=== PATIENT | male | born 1960 | race Caucasian/White ===

== ENCOUNTER 2016-12-31 14:37 | Emergency (ER) | payer OTHER ==
[~2016-12-31] VITALS: Ht 160 cm; Wt 55.0 kg
[2016-12-31 14:59] VITALS: Ht 160 cm; Wt 55.0 kg
--- NOTE | 2016-12-31 17:29 | ERD ---
ER Documentation Chief Complaint Chief Complaint ap HPI The patient is a 56-year-old male, presenting to the ER because of abdominal pain intermittently for 3 days, more painful at the right flank, he denies similar symptoms previously, no aggravating or relieving factor, denies fever, chills, neck pain, chest pain, dyspnea, vomiting, dysuria, diarrhea. He denies smoking, drinks socially Past medical history: Hypertension, diabetes mellitus, anemia Past surgical history: None ROS All systems reviewed and are negative except as per history of present illness. Medications Home Meds Active Scripts Hydrocodone/Acetaminophen ([place] 5-325 Tablet) 1 Each Tablet, 1 TAB PO Q6H Y for PAIN, #7 TAB Prov:NELA MÁRQUEZ MD 12/31/16 Physical Exam Vitals Vital Signs Date Time Temp Pulse Resp B/P Pulse Ox O2 Delivery O2 Flow Rate FiO2 12/31/16 14:59 99.4 100 18 136/77 99 Physical Exam Const: No acute distress. Head: Atraumatic. Eyes: Normal Conjunctiva. ENT: Normal External Ears, Nose and Mouth. Neck: Full range of motion. No meningismus. Resp: Clear to auscultation bilaterally. Cardio: Regular rate and rhythm. Abd: Soft, non distended, normal bowel sounds, minimal right flank tenderness, no rigidity, rebound, CVA tenderness Skin: No petechiae or rashes. Back: No midline or flank tenderness. Ext: No cyanosis, or edema. Neur: Awake and alert. No focal deficit Psych: Normal Mood and Affect. Result Diagram: 12/31/16 1740 12/31/16 1740 Results 24 hrs Laboratory Tests Test 12/31/16 17:40 12/31/16 17:42 White Blood Count 5.710^3/ul Red Blood Count 3.7910^6/ul Hemoglobin 11.6g/dl Hematocrit 33.4% Mean Corpuscular Volume 88.1fl Mean Corpuscular Hemoglobin 30.6pg Mean Corpuscular Hemoglobin Concent 34.7g/dl Red Cell Distribution Width 12.3% Platelet Count 79934^3/UL Mean Platelet Volume 10.1fl Neutrophils % 55.9% Lymphocytes % 34.4% Monocytes % 7.8% Eosinophils % 1.1% Basophils % 0.4% Nucleated Red Blood Cells % 0.0/100WBC Neutrophils # 3.210^3/ul Lymphocytes # 2.010^3/ul Monocytes # 0.410^3/ul Eosinophils # 0.110^3/ul Basophils # 0.010^3/ul Nucleated Red Blood Cells # 0.010^3/ul Sodium Level 141mmol/L Potassium Level 3.9mmol/L Chloride Level 104mmol/L Carbon Dioxide Level 24mmol/L Anion Gap 17 Blood Urea Nitrogen 22mg/dl Creatinine 1.37mg/dl Glucose Level 105mg/dl Calcium Level 9.4mg/dl Total Bilirubin 0.2mg/dl Direct Bilirubin 0.00mg/dl Indirect Bilirubin 0.2mg/dl Aspartate Amino Transf (AST/SGOT) 29IU/L Alanine Aminotransferase (ALT/SGPT) 43IU/L Alkaline Phosphatase 119IU/L Total Protein 7.5g/dl Albumin 4.0g/dl Globulin 3.50g/dl Albumin/Globulin Ratio 1.14 Lipase 147U/L Bedside Urine pH (LAB) 6.0 Bedside Urine Protein (LAB) 3+ Bedside Urine Glucose (UA) Negative Bedside Urine Ketones (LAB) Trace Bedside Urine Blood 2+ Bedside Urine Nitrite (LAB) Negative Bedside Urine Leukocyte Esterase (L Negative Current Medications Medications (Trade) Dose Ordered Sig/David Route PRN Reason Start Time Stop Time Status Last Admin Dose Admin Morphine Sulfate (morphine) 2 mg ONCE ONCE IV 12/31/16 18:00 12/31/16 18:01 DC 12/31/16 17:45 Ondansetron HCl (Zofran Inj) 4 mg ONCE STAT IV 12/31/16 17:40 12/31/16 17:42 DC 12/31/16 17:44 Procedures/[place] [id number] Radiology Main Line: [phone] DIAGNOSTIC IMAGING REPORT Patient: BRADEN PÉREZ : 1960 Age: 56 Sex: M MR #: [id number] DOS: 12/31/16 1740 Ordering MD: NELA MÁRQUEZ MD Location: E/R Room/Bed: PROCEDURE: CT ABDOMEN AND PELVIS WITHOUT CONTRAST CLINICAL INDICATION: 56 years of age, male . Abdominal pain radiating to right upper quadrant.. TECHNIQUE: CT of the abdomen and pelvis was performed without intravenous contrast. Oral contrast was not administered prior to the examination. Coronal and sagittal reformatted images were obtained from the axial source images. Images were reviewed on a high-resolution PACS workstation. DICOM images are available. Dose information: Based on a 32 cm phantom, the estimated radiation dose ( CTDIvol mGy) for each series in this exam is 7.4. The estimated cumulative dose (DLP mGy-cm) is 362. One or more of the following dose reduction techniques were used: - Automated exposure control. - Adjustment of the mA and/or kV according to patient size. - Use of iterative reconstruction technique. COMPARISON: None available. FINDINGS: In the absence of intravenous contrast, the study constitutes a limited assessment of the solid organs, bowel and vessels. LUNG BASES: Normal noncontrast appearance. ABDOMEN/PELVIS: Liver: Normal noncontrast appearance. Gallbladder: Normal noncontrast appearance. Bile ducts: No intrahepatic or extrahepatic biliary duct dilatation. Spleen: Normal noncontrast appearance. Pancreas: Normal noncontrast appearance. Adrenal glands: Normal noncontrast appearance. Kidneys and ureters: Normal noncontrast appearance. Negative for urinary calculi or hydronephrosis. Calcifications in the pelvis represent phleboliths. Aorta and IVC: Atherosclerotic calcification of aorta and iliac vessels. Negative for abdominal aortic aneurysm. Lymph nodes: Small mesenteric lymph nodes are likely reactive. Gastrointestinal tract: Scattered colonic diverticuli without diverticulitis. Mildly prominent loops of small bowel in the central abdomen without a transition point may be due to dysmotility. Negative for evidence of bowel obstruction. Appendix: Normal Bladder: Normal noncontrast appearance. Pelvic Organs: Prostate gland and seminal vesicles are unremarkable. Peritoneal cavity: No free fluid or free intraperitoneal air. Abdominal wall: Small bilateral fat containing indirect inguinal hernias. BONES: Musculoskeletal: Mild degenerative changes in spine and pelvis. No suspicious bone lesions. IMPRESSION: Small mesenteric lymph nodes are likely reactive. Mildly prominent small bowel loops without evidence of obstruction may be due to dysmotility. Otherwise, unremarkable CT of the abdomen and pelvis without contrast. RPTAT: HCTS Gregg Gold Physician Date Time Electronically viewed and signed by Physician Rogelio on 12/31/2016 19: 59 CS/ CC: NELA MÁRQUEZ MD MEDICAL MAKING DECISION: the patient is a 56-year-old male, presenting with acute abdominal pain of unclear etiology, acute hematuria. He was treated with morphine to make IV for pain, Zofran formulary for nausea with good response The differential diagnoses considered include but are not limited to recently passed kidney stone, cholelithiasis, cholecystitis, cystitis, pancreatitis, hepatitis, gastritis, peptic ulcer disease, gastric ulcer, appendicitis, diverticulitis, cholangitis, choledocholithiasis, partial small bowel obstruction. Departure Diagnosis: Primary Impression: Abdominal pain Additional Impressions: Hematuria Anemia Renal insufficiency Condition: Good Comments He was discharged with [place] and Zofran I discussed the findings with the patient. I advised the patient to follow-up with the primary physician in about 1-2 days, sooner if needed and return if any concern. Disclaimer: Inadvertent spelling and grammatical errors are likely due to EHR/ dictation software use and do not reflect on the overall quality of patient care. Also, please note that the electronic time recorded on this note does not necessarily reflect the actual time of the patient encounter. NELA MÁRQUEZ MD Dec 31, 2016 17:29
[2016-12-31] MEDS ORDERED: ONDANSETRON 4 MG INJ IV STA (17:40)
[2016-12-31 17:44] LABS: URINE BLOOD (Dip) POC 2+ (NEGATIVE)
[2016-12-31 17:59] LABS: BASOPHILS % 0.4 % (0.0-2.0); EOSINOPHILS # 0.1 10^3/ul (0.0-0.5); EOSINOPHILS % 1.1 % (0.0-7.0); HEMATOCRIT 33.4 % (42.0-52.0); HEMOGLOBIN 11.6 g/dl (14.0-18.0); LYMPHOCYTES % 34.4 % (15.0-51.0); MEAN CORPUSCULAR HEMOGLOBIN 30.6 pg (29.0-33.0); MEAN CORPUSCULAR HGB CONC 34.7 g/dl (32.0-37.0); MEAN CORPUSCULAR VOLUME 88.1 fl (82.0-101.0); MEAN PLATELET VOLUME 10.1 fl (7.4-10.4); MONOCYTE # 0.4 10^3/ul (0.3-0.9); MONOCYTES % 7.8 % (0.0-11.0); NEUTROPHIL # 3.2 10^3/ul (1.6-7.5); NEUTROPHILS % 55.9 % (39.0-77.0); PLATELET COUNT 210 10^3/UL (140-415); RED BLOOD COUNT 3.79 10^6/ul (4.70-6.10); RED CELL DISTRIBUTION WIDTH 12.3 % (11.5-14.5); WHITE BLOOD COUNT 5.7 10^3/ul (4.8-10.8)
[2016-12-31] MEDS ORDERED: morphine 2 MG INJ IV ONE (18:00)
[2016-12-31 18:18] LABS: ALBUMIN/GLOBULIN RATIO 1.14; BILIRUBIN,INDIRECT 0.2 mg/dl (0-1.1); BILIRUBIN,TOTAL 0.2 mg/dl (0.2-1.3); CALCIUM 9.4 mg/dl (8.4-10.2); CREATININE 1.37 mg/dl (0.61-1.24); POTASSIUM 3.9 mmol/L (3.5-5.1); TOTAL PROTEIN 7.5 g/dl (6.1-8.1)
--- NOTE | 2016-12-31 20:00 | RADRPT ---
PROCEDURE: CT ABDOMEN AND PELVIS WITHOUT CONTRAST CLINICAL INDICATION: 56 years of age, male . Abdominal pain radiating to right upper quadrant.. TECHNIQUE: CT of the abdomen and pelvis was performed without intravenous contrast. Oral contrast wa s not administered prior to the examination. Coronal and sagittal reformatted images were obtained from the axial source images. Images were revi ewed on a high-resolution PACS workstation. DICOM images are available. Dose information: Based on a 32 cm phantom, the estimated radiation dose (CTDIvol mGy) for each seri es in this exam is 7.4. The estimated cumulative dose (DLP mGy-cm) is 362. One or more of the following dose reduction techniques were used: - Automated exposure control. - Adjustment of the mA and/or kV according to patient size. - Use of iterative reconstruction technique. COMPARISON: None available. FINDINGS: In the absence of intravenous contrast, the study constitutes a limited assessment of the solid orga ns, bowel and vessels. LUNG BASES: Normal noncontrast appearance. ABDOMEN/PELVIS: Liver: Normal noncontrast appearance. Gallbladder: Normal noncontrast appearance. Bile ducts: No intrahepatic or extrahepatic biliary duct dilatation. Spleen: Normal noncontrast appearance. Pancreas: Normal noncontrast appearance. Adrenal glands: Normal noncontrast appearance. Kidneys and ureters: Normal noncontrast appearance. Negative for urinary calculi or hydronephrosis. Calcifications in the pelvis represent phleboliths. Aorta and IVC: Atherosclerotic calcification of aorta and iliac vessels. Negative for abdominal aort ic aneurysm. Lymph nodes: Small mesenteric lymph nodes are likely reactive. Gastrointestinal tract: Scattered colonic diverticuli without diverticulitis. Mildly prominent loops of small bowel in the central abdomen without a transition point may be due to dysmotility. Negativ e for evidence of bowel obstruction. Appendix: Normal Bladder: Normal noncontrast appearance. Pelvic Organs: Prostate gland and seminal vesicles are unremarkable. Peritoneal cavity: No free fluid or free intraperitoneal air. Abdominal wall: Small bilateral fat containing indirect inguinal hernias. BONES: Musculoskeletal: Mild degenerative changes in spine and pelvis. No suspicious bone lesions. IMPRESSION: Small mesenteric lymph nodes are likely reactive. Mildly prominent small bowel loops without evidenc e of obstruction may be due to dysmotility. Otherwise, unremarkable CT of the abdomen and pelvis wit hout contrast. RPTAT: HCTS Gregg Gold, Physician Date Time Electronically viewed and signed by Gregg Gold, Physician on 12/31/2016 19:59 CS/
[2016-12-31] MEDS ORDERED: HYDR-906 PO (20:05)
[2016-12-31] MEDS ORDERED: ONDA4TAB14 PO (20:14)
[2016-12-31 20:36] VITALS: BP 158/86; PULSE 92; RESP 17; TEMP 98.9
== END 2016-12-31 20:37 | disposition home or self-care (01) ==
LOC: E/R 14:37
DX: D64.9 Anemia, unspecified (principal); R31.9 Hematuria, unspecified; N28.9 Disorder of kidney and ureter, unspecified; I10 Essential (primary) hypertension; E11.9 Type 2 diabetes mellitus without complications
CPT/HCPCS: 36415; 74176; 80053; 81003; 83690; 85025; 96374; 96375; J2270; J2405; Z7502

== ENCOUNTER 2017-02-20 14:27 | Emergency (ER) | END 2017-02-20 20:56 | disposition home or self-care (01) ==

== ENCOUNTER 2017-04-23 11:20 | Day surgery (SDC) | END 2017-04-23 15:38 | disposition home or self-care (01) ==

== ENCOUNTER 2017-08-19 20:15 | Emergency (ER) | END 2017-08-19 23:30 | disposition home or self-care (01) ==